=== PATIENT | male | born 1965 | race Caucasian/White ===

== ENCOUNTER → 2020-01-03 | Outpatient (CLI) | payer OTHER ==
[2019-11-29 11:15] VITALS: BP 112/70
[~2020-01-03] MED LIST: SIMV10TA15 PO
--- NOTE | 2020-01-03 10:11 | RAD ---
EXAM: CT OF THE CHEST WITHOUT CONTRAST. HISTORY: Lung mass, empyema. TECHNIQUE: Computed tomography of the chest was performed without intravenous contrast. One or more of the following individualized dose reduction techniques were utilized for this examination: 1. Automated exposure control. 2. Adjustment of the mA and/or kV according to patient size. 3. Use of iterative reconstruction technique. COMPARISON: 11/26/2019. FINDINGS: Images of the upper abdomen reveal no acute abnormality. Bone windows reveal a moderate compression deformity at T7. A residual open fracture line is suspected along its inferior endplate. There are mild chronic appearing compression deformities more inferiorly. The previously noted right pleural drain has been removed. Loculated fluid collections within the right fissures have resolved. A small right pleural effusion persists. There is a residual scarlike opacity along the lateral aspect of the right major fissure measuring 3.3 x 2.5 cm. There is lesser scarring in the lingula. A calcified granuloma is again noted in the right lower lobe. A 2 mm nodule in the lingula on image 24 was not seen previously but may have been obscured. This may be a tiny calcified granuloma. There are no pathologically enlarged mediastinal or axillary lymph nodes. There is no pericardial effusion. The heart is not enlarged. There are atherosclerotic calcifications of the coronary arteries. IMPRESSION: 1. The previously noted loculated right pleural effusion has mostly resolved with residual parenchymal scarring. No clear lung mass is identified. There is small residual nonloculated right pleural effusion. Electronically signed by: Sharonda Anne MD (01/03/2020 10:08 AM) [id number]
== END | disposition home or self-care (01) ==
LOC: CT 10:21
PROVIDERS: ATTEND Internal Medicine Critical Care Medicine
DX: R91.1 Solitary pulmonary nodule (principal); R91.8 Other nonspecific abnormal finding of lung field; J43.9 Emphysema, unspecified; J90 Pleural effusion, not elsewhere classified; J98.4 Other disorders of lung
CPT/HCPCS: 71250

== ENCOUNTER → 2020-03-09 | Outpatient (CLI) | payer OTHER ==
[2019-11-29 11:15] VITALS: BP 112/70
--- NOTE | 2020-03-09 16:23 | KCIC ---
PA and lateral chest x-ray compared to CT scan of the chest dated January 022019 for emphysema. FINDINGS: Redemonstration of calcified granuloma in the right lower lung with some adjacent pleural parenchymal scarring. Mild elevation the right hemidiaphragm suggests chronic volume loss in the right. Left lung is clear. No focal pneumonic infiltrates. No pneumothorax or pleural effusion. IMPRESSION: 1. No acute cardiopulmonary abnormality. Chronic changes of the right lower lung are noted. Electronically signed by: Sanchez Ramirez MD (03/09/2020 4:20 PM) [id number]
== END | disposition home or self-care (01) ==
LOC: KCIC 11:50
PROVIDERS: ATTEND Internal Medicine Pulmonary Disease
DX: J43.9 Emphysema, unspecified (principal)
CPT/HCPCS: 71046